=== PATIENT | male | born 1970 | race Caucasian/White ===

== ENCOUNTER 2019-12-21 09:44 | Emergency (ER) | payer OTHER, SELFPAY ==
[2019-12-21 10:20] VITALS: BP 117/78; PULSE 87; RESP 22; TEMP 37.1; O2SAT 98
--- NOTE | 2019-12-21 11:28 | ED.GENADULT ---
HPI - General Adult General Chief complaint: Nausea/Vomiting/Diarrhea Stated complaint: abd pain/nausea/diarrhea Time Seen by Provider: 12/21/19 11:28 Source: patient and RN notes reviewed Mode of arrival: ambulatory Limitations: no limitations History of Present Illness HPI narrative: 49-year-old male presents with complaints of body aches, diarrhea, decrease appetite, and nausea for 1 day. Nausea (spoil egg taste in mouth) and diarrhea without vomiting and/or abdominal pain. Zofran with relief. No abdominal pain or cramping. Exacerbating factors consist of eating and drinking. LBM this morning at 09:30, brown liquid stool without blood. Andreas says he has had 2 episodes since this morning. Denies fever or chills. Denies headache, dizziness, back pain, dysuria, and blood in stool. Tolerating po intake well, Andreas has a 32 ounce drink and tolerating it well. Some parts of this dictation were generated by voice recognition software and may contain typographical and/or grammatical inaccuracies. Related Data Allergies Allergy/AdvReac Type Severity Reaction Status Date / Time No Known Allergies Allergy Verified 12/21/19 11:29 Review of Systems Review of Systems: Narrative: CONSTITUTIONAL: Denies fever, chills, sweats. EYES: Denies visual changes, redness, discharge. ENT: Denies rhinorrhea, congestion, sore throat, otalgia. CARDIOVASCULAR: Denies chest pain, palpitations, edema. RESPIRATORY: Denies dyspnea, wheezing, cough. GASTROINTESTINAL: Denies abdominal pain, vomiting. Complains of diarrhea, nausea, and decrease appetite. GENITOURINARY: Denies dysuria, hematuria, abnormal discharge. SKIN: Denies rash or itching. MUSCULOSKELETAL: Denies acute back pain, joint pain, or myalgia. NEUROLOGIC: Denies numbness or focal weakness. PSYCHIATRIC: Denies anxiety or depression. [facility] Past Medical History Medical History Anxiety Social History Social History Smoking packs per day: 0.5 Smoking cigarettes per day: 10.0 Years smoked: 20 Smoking pack-years: 10.00 Smoking status: Current every day smoker Additional occupation/education comments: [employer] Gender identity (if verbalized by the patient): Male Comments At time of signature, I have reviewed and agree with nursing past medical, surgical, social, and family history. Please see nursing chart for further information. There is no relevant family history pertinent to the presenting complaint. Exam Narrative: Exam Narrative: GENERAL: This is a well-nourished, well-developed patient, in no apparent distress. Talks in full sentences without deficits and ambulates with steady gait without dyspnea. HEAD: normocephalic, atraumatic. EYES: PERRL. Sclera clear/white. Vision is grossly intact. THROAT: Mucous membranes moist, posterior pharynx clear. NECK: Neck supple, non-tender without lymphadenopathy, masses or thyromegaly. CARDIOVASCULAR: Regular rate and rhythm without murmurs, gallops, or rubs. RESPIRATORY: Clear to auscultation. Breath sounds equal bilaterally. No wheezes, rales, or rhonchi. GASTROINTESTINAL: Abdomen soft, no significant tenderness, nondistended. Bowel sounds are active. No hepato-splenomegaly, or palpable masses. No guarding. No palpable abdominal hernia. SKIN: warm, intact with no suspicious lesions or rash, good texture and turgor. NEURO: awake, alert, and oriented to person, place and time. There were no obvious focal neurologic abnormalities. EXTREMITIES: No clubbing, cyanosis, or edema. BACK: Nontender without deformity or crepitance. No flank tenderness with palpation. Tc Coma Scale Eye Opening: Spontaneous 4 [place] Coma Scale Motor: Obeys Commands 6 [place] Coma Scale Verbal: Oriented 5 Course Vital Signs Vital signs: Vital Signs Temperature 37.1 C 12/21/19 10:20 Pulse Rate 87 12/21/19 10:20 Re
== END 2019-12-21 11:40 | disposition home or self-care (01) ==
PROVIDERS: Emergency Provider Nurse Practitioner Family
DX: K52.9 Noninfective gastroenteritis and colitis, unspecified (principal); F17.200 Nicotine dependence, unspecified, uncomplicated
CPT/HCPCS: 99213; G0463

== ENCOUNTER 2021-12-25 10:38 | Emergency (ER) | payer OTHER, SELFPAY ==
--- NOTE | ~2021-12-25 | XR_ITS ---
EXAMINATION: [id number] DATE: 12/25/2021 11:23 INDICATION: Posterior neck pain. TECHNIQUE: 4 views of cervical spine were obtained. COMPARISON: None. FINDINGS: There is 9 degrees dextrocurvature of cervical spine. Vertebral body heights are normal. Th ere is mildly decreased disc height at C5-C6 and C6-C7. The facet joints are unremarkable. There is o ssification of the nuchal ligament at C6. No central canal stenosis or prevertebral soft tissue swell ing. IMPRESSION: 1. Mild cervical spondylosis. Reviewed, dictated and finalized at location A. [facility]
[2021-12-25 10:48] VITALS: BP 151/75; PULSE 90; RESP 16; TEMP 36.9; O2SAT 100
[2021-12-25 11:00] VITALS: BP 151/75; PULSE 90; RESP 16; TEMP 36.9; O2SAT 100
--- NOTE | 2021-12-25 11:00 | ED.NECK ---
HPI - Neck Pain/Injury General Chief Complaint: Neck Pain/Injury Stated Complaint: back of neck swelling and pain Time Seen by Provider: 12/25/21 11:00 Source: patient Mode of arrival: ambulatory Limitations: no limitations History of Present Illness HPI Narrative: 51-year-old male presented for complaint of mid posterior neck pain and swelling for about 1 week. He endorses flare ups at least once a month of the same symptoms. He states minimal activity can cause irritation to the site. He applies ice/heat and takes ibuprofen or Tylenol as needed. Today he endorses nausea and increased pressure to the site when he woke. He denies radiating pain to the arms, denies decreased range of motion to the neck. Hx nail gun injury to right side of neck 2018. Endorses having Covid on 12/07/2021 with a temperature of 105. He works at a [employer] and is a smoker. Related Data Home Medications Medication Instructions Recorded Confirmed citalopram 20 mg PO DAILY 12/25/21 12/25/21 Allergies Allergy/AdvReac Type Severity Reaction Status Date / Time No Known Allergies Allergy Verified 12/25/21 10:59 Review of Systems Review of Systems: CONSTITUTIONAL: Denies body aches, fever, chills, or sweats. EYES: Denies visual changes, redness, or discharge. ENT: Denies rhinorrhea, congestion, sore throat, or otalgia. CARDIOVASCULAR: Denies chest pain, palpitations, or edema. RESPIRATORY: Denies cough or dyspnea. GASTROINTESTINAL: Denies abdominal pain, nausea, vomiting, or diarrhea. GENITOURINARY: Denies dysuria or hematuria. SKIN: swelling and redness to posterior neck with pressure; No rash, itching, wounds. MUSCULOSKELETAL: Denies back pain, joint pain, or myalgia. NEUROLOGIC: Denies headache, numbness, tingling, or weakness. PSYCH: Denies depression or anxiety. [facility] Past Medical History Medical History (Updated 12/25/21 @ 11:45 by Daniela Gillette APRN) Anxiety Social History Social History Smoking packs per day: 0.5 Smoking cigarettes per day: 10.0 Years smoked: 20 Smoking pack-years: 10.00 Smoking status: Current every day smoker Additional occupation/education comments: [employer] Gender identity (if verbalized by the patient): Male Comments At time of signature, I have reviewed and agree with nursing past medical, surgical, social and family history unless otherwise noted. Please see nursing chart for further information. There is no relevant family history pertinent to the presenting complaint Exam Narrative: GENERAL: Well-appearing, well-nourished, and in no acute distress. HEAD: Normocephalic, atraumatic. EYES: PERRLA, conjunctivae clear, and EOMI. ENT: Mucous membranes moist. Oropharynx without edema, erythema or lesions. NECK: Supple. No lymphadenopathy CHEST: Clear to auscultation. No respiratory distress. HEART: Regular rate and rhythm. SKIN: Warm, dry. Patch of circular erythema and mild edema approx 4cmx5.5 cm diameter, nontender, no open area, no induration, no soft tissue nodule. NEURO: Alert and oriented x3. No weakness, loss of sensation, or decreased ROM, no VPT PSYCH: Normal mood and affect Course Course Emergency Course: Patient is aware of diagnosis, understands and agrees to treatment plan. Anticipatory guidance given. Patient agrees to follow-up as directed and is aware of reasons to seek care at the emergency department. Portions of this record may have been created with voice recognition software Level of Care: Express Care Visit Vital Signs Vital signs: Vital Signs Temperature 98.5 F 12/25/21 10:48 Pulse Rate 90 12/25/21 10:48 Respiratory Rate 16 12/25/21 10:48 Blood Pressure 151/75 H 12/25/21 10:48 Pulse Oximetry 100 12/25/21 10:48 Temperature 98.5 F 12/25/21 11:00 Pulse Rate 90 12/25/21 11:00 Respiratory Rate 16 12/25/21 11:00 Blood Pressure 151/75 H 12/25/21 11:00 Pulse O
== END 2021-12-25 11:53 | disposition home or self-care (01) ==
PROVIDERS: Emergency Provider Nurse Practitioner Family
DX: R22.1 Localized swelling, mass and lump, neck (principal); F41.9 Anxiety disorder, unspecified; Z86.16 Personal history of COVID-19; F17.210 Nicotine dependence, cigarettes, uncomplicated
CPT/HCPCS: 72040; 99213; G0463

== ENCOUNTER 2022-11-27 11:05 | Emergency (ER) | payer OTHER, SELFPAY ==
[2022-11-27 11:15] VITALS: BP 120/77; PULSE 87; RESP 16; TEMP 36.6; O2SAT 96
--- NOTE | 2022-11-27 11:30 | ED.NAVMDI ---
HPI - Nausea/Vomiting/Diarrhea General Chief complaint: Nausea/Vomiting/Diarrhea Stated complaint: flu symptoms Time Seen by Provider: 11/27/22 11:33 Source: patient and RN notes reviewed Mode of arrival: ambulatory Limitations: no limitations History of Present Illness HPI Narrative: 52 y/o male presented for c/o nausea this morning when he woke. States he feels better but was unable to go to work. Denies abdominal pain, vomiting, diarrhea, urinary complaints, fever or chills. . States he has had sinus congestion and drainage for about one week. Not taking anything for symptoms. Denies sick contacts. Related Data Home Medications Medication Instructions Recorded Confirmed citalopram 20 mg tablet 20 mg PO DAILY 12/25/21 11/27/22 Allergies Allergy/AdvReac Type Severity Reaction Status Date / Time No Known Allergies Allergy Verified 11/27/22 11:21 Review of Systems Review of Systems: per HPI All systems reviewed & are unremarkable except as noted in HPI and below PMFSH Past Medical History Medical History (Updated 11/27/22 @ 11:35 by Daniela Gillette APRN) Anxiety Social History Social History Smoking packs per day: 0.5 Smoking cigarettes per day: 10.0 Years smoked: 20 Smoking pack-years: 10.00 Smoking status: Current every day smoker Additional occupation/education comments: [employer] Gender identity (if verbalized by the patient): Male Comments At time of signature, I have reviewed and agree with nursing past medical, surgical, social and family history unless otherwise noted. Please see nursing chart for further information. There is no relevant family history pertinent to the presenting complaint Exam Narrative: GENERAL: Well-appearing EYES: EOMI. Conjunctivae normal. ENT: Mucous membranes pink and moist. CHEST: Clear to auscultation. HEART: Regular rate and rhythm. ABDOMEN: abd soft, nondistended, normal active bowel sounds. Nontender abdomen EXTREMITIES: Normal range of motion. No edema. SKIN: Warm, dry, no rash. Capillary refill normal. Normal skin turgor. NEURO: No focal deficits. Alert and oriented x3. PSYCH: Normal affect. Course Course Emergency Course: Patient is aware of diagnosis, understands and agrees to treatment plan. Anticipatory guidance given. Patient agrees to follow-up as directed and is aware of reasons to seek care at the emergency department. Portions of this record may have been created with voice recognition software Level of Care: Express Care Visit Vital Signs Vital signs: Vital Signs Temperature 97.8 F 11/27/22 11:15 Pulse Rate 87 11/27/22 11:15 Respiratory Rate 16 11/27/22 11:15 Blood Pressure 120/77 11/27/22 11:15 Pulse Oximetry 96 11/27/22 11:15 Oxygen Delivery Room Air 11/27/22 11:15 Temperature 97.8 F 11/27/22 11:15 Pulse Rate 87 11/27/22 11:15 Respiratory Rate 16 11/27/22 11:15 Blood Pressure 120/77 11/27/22 11:15 Pulse Oximetry 96 11/27/22 11:15 Oxygen Delivery Room Air 11/27/22 11:15 MDM - Nausea/Vomiting/Diarrhea MDM Narrative Medical decision making narrative: Advised supportive measures and signs/symptoms to go to the ER. Pt is appropriate for outpt treatment and f/u. Differential Diagnosis Differential diagnosis: Likely food poisoning, gastroenteritis and other Discharge Plan Discharge Clinical Impression: Nausea Patient Disposition: Home, Self-Care Condition: Stable Instructions: Acute Nausea and Vomiting (ED) Additional Instructions: Stay hydrated. Take small sips of fluid containing electrolytes frequently. Clear liquids (broth, jello, tea, sprite, pedialyte) [place] foods (bananas, rice, applesauce, toast, crackers) Avoid fatty, greasy, fried or spicy foods. You should go to the hospital if you experience persistent nausea and vomiting that does not resolve and does not allow you to t
== END 2022-11-27 11:38 | disposition home or self-care (01) ==
PROVIDERS: Emergency Provider Nurse Practitioner Family
DX: R11.0 Nausea (principal); F41.9 Anxiety disorder, unspecified; F17.210 Nicotine dependence, cigarettes, uncomplicated
CPT/HCPCS: 99213; G0463

== ENCOUNTER 2023-02-04 11:42 | Emergency (ER) | payer OTHER, SELFPAY ==
--- NOTE | 2023-02-04 11:46 | ED.NAVMDI ---
HPI - Nausea/Vomiting/Diarrhea General Chief complaint: Nausea/Vomiting/Diarrhea Stated complaint: abdo pain/nausea Time Seen by Provider: 02/04/23 12:01 Source: patient and RN notes reviewed Mode of arrival: ambulatory Limitations: no limitations History of Present Illness HPI Narrative: 52-year-old male presents concern for nausea stomach cramping that started this morning. He denies vomiting, diarrhea, abdominal pain, fever. He denies any upper respiratory symptoms. He denies known sick contacts. Reports he has been taking acid pills MD elicited complaint: nausea Related Data Home Medications Medication Instructions Recorded Confirmed citalopram 20 mg tablet 20 mg PO DAILY 12/25/21 11/27/22 Allergies Allergy/AdvReac Type Severity Reaction Status Date / Time No Known Allergies Allergy Verified 11/27/22 11:21 Review of Systems Review of Systems: CONSTITUTIONAL: Denies malaise, chills, sweats, or fever. ENT: Denies rhinorrhea, congestion, sinus pain, otalgia or sore throat. CARDIOVASCULAR: Denies chest pain, palpitations, or edema. RESPIRATORY: Denies cough or dyspnea. GASTROINTESTINAL: Denies abdominal pain, vomiting, diarrhea, bloody, or mucous stools. Reports nausea and stomach cramping GENITOURINARY: Denies dysuria or hematuria. MUSCULOSKELETAL: Denies myalgia. NEUROLOGIC: Denies headache. All systems reviewed & are unremarkable except as noted in HPI and below PMFSH Past Medical History Medical History (Updated 02/04/23 @ 12:06 by Cherri Weiss NP) Anxiety Social History Social History Smoking packs per day: 0.5 Smoking cigarettes per day: 10.0 Years smoked: 20 Smoking pack-years: 10.00 Smoking status: Current every day smoker Living arrangements: with family Occupation/Education: occupation Additional occupation/education comments: [employer] Gender identity (if verbalized by the patient): Male Comments At time of signature, agree with nursing past medical, surgical, social and family history. There is no relevant family history pertinent to the presenting complaint Exam Narrative: GENERAL: Well-appearing, well-nourished, and in no acute distress. HEAD: Normocephalic, atraumatic. EYES: PERRLA, conjunctivae clear, and EOMI. ENT: Nares clear, turbinates pink, no rhinorrhea or epistaxis. Mucous membranes moist. Oropharynx without edema, erythema, or lesions. Tonsils not enlarged and without exudate. NECK: Supple. No lymphadenopathy CHEST: Speaks in full sentences. No respiratory distress. HEART: Regular rate and rhythm. ABDOMEN: Soft, flat, nondistended, nontender. No guarding, rebound tenderness, or rigidity. No pulsatile masses. Bowel sounds present in all four quadrants. No organomegaly. Negative Post?s sign. No periumbilical tenderness. No Supra public tenderness or distension. Good femoral pulses bilaterally. No hernia noted. No scars or surface trauma. SKIN: Warm, dry, no rash. NEURO: Alert and oriented x3. PSYCH: Normal mood and affect Course Course Emergency Course: Patient is aware of diagnosis, understands and agrees to treatment plan. Anticipatory guidance given. Patient agrees to follow-up as directed and is aware of reasons to seek care at the emergency department. Portions of this record may have been created with voice recognition software Level of Care: Express Care Visit Vital Signs Vital signs: Reviewed. MDM - Nausea/Vomiting/Diarrhea MDM Narrative Medical decision making narrative: No evidence of pancreatitis, AAA, cholecystitis, choledocholithiasis, cholangitis, mesenteric ischemia, small bowel obstruction, diverticulitis, colitis, appendicitis, or pelvic etiology such as ovarian/testicular torsion, TOA, or ectopic . Patient has no history of peptic ulcer, H. pylori, chronic aspirin NSAID or corticosteroid use, chronic alcohol use, no history of inflammatory bowel disease, no
[2023-02-04 11:50] VITALS: BP 123/79; PULSE 78; RESP 16; TEMP 36.6; O2SAT 100
== END 2023-02-04 12:09 | disposition home or self-care (01) ==
PROVIDERS: Emergency Provider Nurse Practitioner
DX: R11.0 Nausea (principal); F17.210 Nicotine dependence, cigarettes, uncomplicated
CPT/HCPCS: 99211; G0463

== ENCOUNTER 2024-12-24 11:44 | Emergency (ER) | payer OTHER, SELFPAY ==
[2024-12-24 11:50] VITALS: BP 121/77; PULSE 95; RESP 20; TEMP 37.4; O2SAT 95
--- NOTE | 2024-12-24 12:01 | ED_ITS ---
HPI - URI/Sore Throat General Chief Complaint: Upper Respiratory Infection Stated Complaint: flu symptoms Source: patient and RN notes reviewed Mode of arrival: ambulatory Limitations: no limitations History of Present Illness HPI Narrative: 54-year-old male presented for complaint of headache, body aches, sinus pressure/congestion, cough, fever/chills. onset yesterday. Denies sob, wheezing, n/v/d. Took Tylenol and NyQuil this morning for temp 103. MD elicited complaint: cough Related Data Home Medications ?Medication ?Instructions ?Recorded ?Confirmed ?Last Taken ?Type No Home Medications 12/24/24 12/24/24 Unknown History Allergies Allergy/AdvReac Type Severity Reaction Status Date / Time No Known Allergies Allergy Verified 12/24/24 12:01 Review of Systems Review of Systems: CONSTITUTIONAL: Endorses malaise, chills, sweats, fever EYES: Denies visual changes, redness, or discharge ENT: Reports rhinorrhea, congestion CARDIOVASCULAR: Denies chest pain, palpitations, edema RESPIRATORY: Reports cough, post nasal drainage. Denies dyspnea GASTROINTESTINAL: Denies abdominal pain, nausea, vomiting, diarrhea SKIN: Denies rash MUSCULOSKELETAL: Endorses myalgia NEUROLOGIC: endorses headache PMFSH Past Medical History Medical History (Updated 12/24/24 @ 12:03 by Daniela Antonio APRN) Anxiety Social History Social History Smoking packs per day: 0.5 Smoking cigarettes per day: 10.0 Years smoked: 20 Smoking pack-years: 10.00 Smoking status: Current every day smoker Living arrangements: with family Occupation/Education: occupation Additional occupation/education comments: [employer] Gender identity (if verbalized by the patient): Male Exam Narrative: GENERAL: mildly Ill-appearing, nontoxic no acute distress. EYES: PERRLA, conjunctivae clear ENT: Mucous membranes moist. TM pearly mcdaniel with dull light reflex bilaterally; no tragal tenderness. NECK: Supple. No lymphadenopathy CHEST: Clear to auscultation, breath sounds equal. No wheezing, rhonchi, rales, or stridor. No respiratory distress, speaks in full sentences. HEART: Regular rate and rhythm. No murmur heard. SKIN: Warm, dry, no rash. NEURO: Alert and oriented x3. PSYCH: Normal mood and affect Course Course Emergency Course: Patient is aware of diagnosis, understands and agrees to treatment plan. Anticipatory guidance given. Patient agrees to follow-up as directed and is aware of reasons to seek care at the emergency department. Portions of this record may have been created with voice recognition software Level of Care: Express Care Visit Vital Signs Vital signs: Vital Signs Temperature 99.3 F 12/24/24 11:50 Pulse Rate 95 12/24/24 11:50 Respiratory Rate 20 12/24/24 11:50 Blood Pressure 121/77 12/24/24 11:50 Pulse Oximetry 95 12/24/24 11:50 Oxygen Delivery Room Air 12/24/24 11:50 Temperature 99.3 F 12/24/24 11:50 Pulse Rate 95 12/24/24 11:50 Respiratory Rate 20 12/24/24 11:50 Blood Pressure 121/77 12/24/24 11:50 Pulse Oximetry 95 12/24/24 11:50 Oxygen Delivery Room Air 12/24/24 11:50 reviewed MDM - URI/Sore Throat MDM Narrative Medical decision making narrative: POS flu. Discussed physical exam findings. Advised supportive measures and si gns/symptoms to go to the ER. Pt is appropriate for outpt treatment and f/u. Differential Diagnosis Differential diagnosis: Likely upper respiratory infection, sinusitis, viral infection, bronchitis, influenza and pharyngitis Discharge Plan Discharge Clinical Impression: Influenza Patient Disposition: Home, Self-Care Condition: Stable Instructions: Antibiotic Form, Influenza (ED) Additional Instructions: Influenza positive You should avoid crowds until you are fever free for 24 hours without the use of fever reducing medications, or the symptoms are improved Rest. Drink plenty of fluids. Tylenol 1000mg every 8 hours as needed for pain/fever Recommend Flonase spray and Zyrtec (or Claritin/Faith) for sinus pressure/congestion over the counter Cough syrup may cause drowsiness; avoid driving or take it at night time. Follow up with your primary care provider as needed Go to the ER for worsening symptoms or concerns Patient Language: Estonian Prescriptions: No Action No Home Medications Follow-up/Referrals: PHYSICIAN,FREIGHT ADJUSTER [Primary Care Provider] - Stand Alone Forms: Work/School Release IP Time of Disposition: 12:06
[2024-12-24 12:12] LABS: EDCOVIDSCREEN Negative (Negative); EDINFLUASCREEN Positive (Negative); EDINFLUBSCREEN Negative (Negative)
--- OUTSIDE RECORDS SUMMARY | 2024-12-24 12:38 | XMS_ITS | Clinical Summary ---
Author Organization [facility] Address [address] [place] [address] Phone Care Team Providers Care Mold Maker Name Role Phone Mary Kate Munoz PAC Unavailable [phone] Damien Lance APRN, CARE TEAM ASSISTANT Primary Care Pr ovider Allergies No known active allergies Medications ibuprofen (MOTRIN) 800 MG TabletIndication s:Chronic pain disorder Take 1 Tablet by mouth every 8 hours. 60 Tablet 1 04/18/2022 Active escitalopram (LEXAPRO) 10 MG TabletIndication s:Panic disorder Take 1 Tablet by mouth daily. 90 Tablet 3 05/17/2023 Active Active Problems Problem Noted Date Diagnosed Date HLD (hyperlipidemia) 12/26/2020 Impaired fasting glucose 01/05/2020 Panic disorder 01/01/2020 Tobacco abuse 01/01/2020 Resolved Problems Problem Noted Date Diagnosed Date Resolved Date Hyperglycemia 12/23/2020 12/23/2020 Anxiety 01/01/2020 01/01/2020 Immunizations Immunization Administration Dates Next Due Influenza Vaccine, Quadrivalent, PF 10/20/2021,1 ,12/04/2019 TDAP Vaccine 12/14/2023 Td (Adult) 09/08/2019 Family History Medical History Relation Name Comments No Known Problems Father No Known Problems Maternal Grandfather No Known Problems Maternal Grandmother Lupus Mother Rheumatoid Arthritis Mother No Known Problems Paternal Grandfather No Known Problems Paternal Grandmother No Known Problems Sister Relation Name Status Comments Father Alive Maternal Grandfather Maternal Grandmother Mother Alive Paternal Grandfather Paternal Grandmother Sister Social History Tobacco Use Types Packs/Day Years Used Date Smoking Tobacco: Some Days Cigarettes Smokeless Tobacco: Never Tobacco Cessation:Ready to Q uit: No; Counseling Given: Yes Alcohol Use Standard Drinks/Week Comments Not Currently 0 (1 standard drink = 0.6 oz pur e alcohol) PHQ-2 Answer Date Recorded Total Score - Questions 1-9 0 04/26 Education Answer Date Recorded What is the highest level of school you have completed or the highest degree you have received? 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 Not on file Not on file Last Filed Vital Signs Vital Sign Reading Time Taken Comments Blood Pressure 116/76 12/14/2023 4:36 PM RN ENT Pulse 78 12/14/2023 4:36 PM RN ENT Temperature 36.2 ??C (97.2 ??F) 12/14/2023 2:52 PM CS T Respiratory Rate 18 12/14/2023 4:36 PM RN ENT Oxygen Saturation 99% 12/14/2023 4:36 PM RN ENT Inhaled Oxygen Concentration - - Weight 77.6 kg (171 lb 1.2 oz) 12/14/2023 2:52 P M RN ENT Height 182.9 cm (6') 12/14/2023 2:52 PM RN ENT Body Mass Index 23.2 12/14/2023 2:52 PM RN ENT Plan of Treatment Health Maintenance Due Date Last Done Comments Hepatitis C Virus (HCV) Screening 1971 Hepatitis B Immunization (1 of 3 - 19+ 3-dose series) 1990 Pneumococcal Immunization (5 0+ years) (1 of 2 - PCV) 1990 Colonoscopy 2016 Colorectal Cancer Screening 2016 Cologuard 2021 Immunochemical Fecal Occult Blood 2021 Zoster Immunization (1 of 2) 2021 Influenza Immunization (#1) 2024 11/2 04/2021, 09/08/2020, 12/04/2019 SARS-COV-2 Immunization ( season) 2024 01/30/2021, 01/07/2021 Td Immunization Every 10 Yea rs (Adults With 1 Tdap) 12/14/2033 12/14/2023, 09/08/2019 Respiratory Syncytial Virus (RSV) Immunization (Adult) (1 - 1-dose 75+ series) 2046 Pneumococcal Immunization Combined Discontinued 08/25/2019 DTaP/Tdap/Td Immunization Discontinued 2023, 09/08/2019 Meningococcal Immunization (ACWY) Aged Out No longer eligible based on patient's age to complete this topic Rotavirus Immunization Aged Out No lo nger eligible based on patient's age to complete this topic Insurance [facility] Care Teams Mold Maker Relationship Specialty Start Date End Date Damine Lance, PASTEURISER OPERATOR, CARE TEAM ASSISTANT [address] [address] PCP - General Advanced Practice Nurse 12/14/23 Mary Kate Munoz, CHADD [address] [place] [address] Physician Ranch Hand Livestock Physician Ranch Hand Livestock 04/18/22
--- OUTSIDE RECORDS SUMMARY | 2024-12-24 12:38 | XMS_ITS | Encounter Summary ---
Author Organization [facility] Address [address] [place] [address] Phone Care Team Providers Care Grain Oilseed Or Pasture Farm Worker Name Role Phone Damien Lance APRN, SCOTT Primary Care Pr ovider Mary Kate Munoz PAC Unavailable [phone] Damien Lance APRN, SCOTT Primary Care Pr ovider Reason for Visit * Reason Comments Medication Refill Encounter Details Date Type Department Care Team (Late st Contact Info) Description 02/18/2021 Refill [facility] [address] [place] [address] Khushi Newell APRN, SHOE LINING FITTER [address] [place] [address] Medication Refill Social History Tobacco Use Types Packs/Day Years Used Date Smoking Tobacco: Some Days Cigarettes Smokeless Tobacco: Never Alcohol Use Standard Drinks/Week Comments Not Currently 0 (1 standard drink = 0.6 oz pur e alcohol) PHQ-2 Answer Date Recorded Total Score - Questions 1-9 0 02/2020 Sexually Active Control Partners Comments Yes Female Sex and Gender Information Value Date Recorded Sex Assigned at Not on file Legal Sex Male 11:15 PM CDT Gender Identity Not on file Sexual Orientation Not on file 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 Requested Prescriptions Pending Prescriptions Disp Refills escitalopram (LEXAPRO) 10 MG Tablet [Pharmacy Med Name: ESCITALOPRAM 10MG TABLETS] 90 Tablet 1 Sig: TAKE 1 TABLET BY MOUTH DAILY Not Delegated - Psychiatry: Antidepressants Failed - 02/18/2021 1:16 PM Failed - This refill cannot be delegated Passed - Valid encounter within last 12 months Past Office Visits Recent Outpatient Visits 2 months ago Chest pressure [facility] - Damien Schmidt APN, CNP 7 months ago Strain of neck muscle, initial encounter [facility] - Kandy Zuniga APN, CNP 1 year ago Panic disorder [facility] - Damien Schmidt APN, CNP Upcoming Appointments SMOCKING MACHINE OPERATOR - Recent and Past Visits Recent Visits Date Type Provider Dept 12/23/20 Telemedicine Damien Lance APN, CNP [facility] 06/28/20 Office Visit Kandy Oliveira APN, CNP [facility] 01/01/20 Office Visit Damien Lance APN, CNP [facility] Showing recent visits within past 460 days with a meds authorizing provider and meeting all other requirements Future Appointments No visits were found meeting these conditions. Showing future appointments within next 90 days with a meds authorizing provider and meeting all other requirements documented in this encounter Plan of Treatment Not on file documented as of this encounter Visit Diagnoses Diagnosis Panic disorder Panic disorder without agoraphobia documented in this encounter Additional Health Concerns Assessment Noted Time PHQ-9 Depression Total Score: 0 06/28/20 20 12:45 PM CDT documented as of this encounter Care Teams Grain Oilseed Or Pasture Farm Worker Relationship Specialty Start Date End Date Damien Lance APRN, CNP [address] [address] PCP - General Certified Nurse Practitioner 01/05/20 12/13/23 Damien Lance APRN, SHOE LINING FITTER [address] [address] PCP - General Advanced Practice Nurse 12/14/23 Mary Kate Munoz, CHADD [address] [place] [address] Physician Stained Glass Artist Physician Stained Glass Artist 04/18/22 documented as of this encounter
--- OUTSIDE RECORDS SUMMARY | 2024-12-24 12:38 | XMS_ITS | Encounter Summary ---
Author Organization [facility] Address [address] [place] [address] Phone Care Team Providers Care Manager Staffing Name Role Phone Damien Lance APRN, SCOTT Primary Care Pr ovider Mary Kate Munoz PAC Unavailable [phone] Damien Lance APRN, CNP Primary Care Pr ovider Reason for Visit * Reason Comments Medication Refill Encounter Details Date Type Department Care Team (Late st Contact Info) Description 05/16/2023 Refill [facility] [address] [place] [address] Damien Lance APRN, SCOTT [address] [address] Medication Refill Social History Tobacco Use Types Packs/Day Years Used Date Smoking Tobacco: Some Days Cigarettes Smokeless Tobacco: Never Alcohol Use Standard Drinks/Week Comments Not Currently 0 (1 standard drink = 0.6 oz pur e alcohol) PHQ-2 Answer Date Recorded Total Score - Questions 1-9 0 04/26 Sexually Active Control Partners Comments Yes Female Sex and Gender Information Value Date Recorded Sex Assigned at Not on file Legal Sex Male 11:15 PM CDT Gender Identity Not on file Sexual Orientation Not on file 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 Unable to assess 05/17/2023 10:26 AM CDT documented as of this encounter Functional Status * Question Answer Date of Assessment Author Little interest or pleasure in doing things Not at all 05/17/2023 10:00 AM SONJAT Dorothy Boo CMA Feeling down, depressed, or hopeless Not at all 05/17/2023 10:00 AM CDT Dorothy Boo CMA * Over the past 2 weeks, how often have you been bothered by any of the following problems? Question Answer Date of Assessment Author Patient Health Questionnaire -2 Score 0 05/17/2023 10:00 AM CDT Dorothy Boo CMA documented as of this encounter Miscellaneous Notes * Telephone Encounter - Deirdre Garrido RN - 05/16/2023 1:55 PM CDT Appt scheduled with Mary Kate 05/17/23 * Telephone Encounter - Damien Lance APRN, CNP - 05/16/2023 1:32 PM CDT Needs appointment * Telephone Encounter - Deirdre Garrido RN - 05/16/2023 1:29 PM CDT Needs OV with PCP * Telephone Encounter - Deirdre Garrido RN - 05/16/2023 1:29 PM CDT Medication failed the protocol, provider to review and approve the medication order if appropriate. Requested Prescriptions Pending Prescriptions Disp Refills escitalopram (LEXAPRO) 10 MG Tablet [Pharmacy Med Name: ESCITALOPRAM 10MG TABLETS] 30 Tablet 0 Sig: TAKE 1 TABLET BY MOUTH DAILY SSRI (6 Month Refill Only) Protocol Failed - 05/16/2023 3:54 AM Failed - Visit with relevant provider in past 6 months or upcoming 90 days Recent Visits No visits were found meeting these conditions. Showing recent visits within past 182 days and meeting all other requirements Future Appointments No visits were found meeting these conditions. Showing future appointments within next 90 days and meeting all other requirements Failed - Has an encounter in the past 6 months with a depression, anxiety, adjustment disorder, OCD, or PTSD visit diagnosis Passed - Patient has established therapy with SSRI for at least 6 months documented in this encounter Plan of Treatment Not on file documented as of this encounter Visit Diagnoses Diagnosis Panic disorder Panic disorder without agoraphobia documented in this encounter Additional Health Concerns Assessment Noted Time PHQ-9 Depression Total Score: 0 04/18/20 4:00 PM CDT documented as of this encounter Care Teams Manager Staffing Relationship Specialty Start Date End Date Damien Lance APRN, SCOTT [address] [address] PCP - General Certified Nurse Practitioner 01/05/20 12/13/23 Damien Lance APRN, SCOTT [address] [address] PCP - General Advanced Practice Nurse 12/14/23 Mary Kate Munoz PAC [address] [place] [address] Physician Sybase Developer Physician Sybase Developer 04/18/22 documented as of this encounter
--- OUTSIDE RECORDS SUMMARY | 2024-12-24 12:38 | XMS_ITS | Encounter Summary ---
Author Organization [facility] Address [address] 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 Requested Prescriptions Pending Prescriptions Disp Refills escitalopram (LEXAPRO) 10 MG Tablet [Pharmacy Med Name: ESCITALOPRAM 10MG TABLETS] 90 Tablet 1 Sig: TAKE 1 TABLET BY MOUTH DAILY SSRI (6 Month Refill Only) Protocol Failed - 09/06/2021 5:07 PM Failed - Visit with relevant provider in [...] documented as of this encounter Care Teams Packing Machine Feeder Relationship Specialty Start Date End Date Damien Lance APRN, SCOTT [address] [address] PCP - General Certified Nurse Practitioner 01/05/20 12/13/23 Damien Lance APRN, SCOTT [address] [address] PCP - General Advanced Practice Nurse 12/14/23 Mary Kate Munoz PAC [address] [place] [address] Physician Light Cleaner Physician Light Cleaner 04/18/22 documented as of this encounter
== END 2024-12-24 12:10 | disposition home or self-care (01) ==
PROVIDERS: Emergency Provider Nurse Practitioner Family
DX: J11.1 Influenza due to unidentified influenza virus with other respiratory manifestations (principal); F41.9 Anxiety disorder, unspecified; Z20.822 Contact with and (suspected) exposure to COVID-19
CPT/HCPCS: 87426; 87804; 99212; G0463

== ENCOUNTER 2025-06-02 13:32 | Emergency (ER) | payer OTHER, SELFPAY ==
[2025-06-02 13:38] VITALS: BP 127/98; PULSE 117; RESP 20; TEMP 36.9; O2SAT 99
--- OUTSIDE RECORDS SUMMARY | 2025-06-02 13:47 | XMS_ITS | Encounter Summary ---
Author Organization [facility] Address [address] 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 [...] Outpatient Visits 2 months ago Chest pressure [facility] - Damien Schmidt APN, CNP 7 months ago Strain of neck muscle, initial encounter [facility] - Kandy Zuniga APN, CNP 1 year ago Panic disorder [facility] - Damien Schmidt APN, CNP Upcoming Appointments CAN VACUUM TESTER - Recent and Past Visits Recent Visits Date Type Provider Dept 12/23/20 Telemedicine Damien Lance APN, CNP [facility] 06/28/20 Office Visit Kandy Oliveira APN, CNP [facility] 01/01/20 Office Visit Damien Lance APN, CNP [facility] Showing recent visits within past 460 days [...] documented as of this encounter Care Teams Face Burler Relationship Specialty Start Date End Date Damien Lance APRN, CNP [address] [address] PCP - General Certified Nurse Practitioner 01/05/20 12/13/23 Damien Lance APRN, CATEGORY MANAGER #[address] [address] PCP - General Advanced Practice Nurse 12/14/23 Mary Kate Munoz, CHADD [address] [place] [address] Physician Supervisor Sewing Room Physician Supervisor Sewing Room 04/18/22 documented as of this encounter
--- OUTSIDE RECORDS SUMMARY | 2025-06-02 13:47 | XMS_ITS | Encounter Summary ---
Author Organization [facility] Address [address] 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
--- OUTSIDE RECORDS SUMMARY | 2025-06-02 13:47 | XMS_ITS | Encounter Summary ---
Author Organization [facility] Address [address] 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
--- OUTSIDE RECORDS SUMMARY | 2025-06-02 13:47 | XMS_ITS | Clinical Summary ---
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 on file Last Filed Vital Signs Vital Sign Reading Time Taken Comments Blood Pressure 116/76 12/14/2023 4:36 PM WIND UP OPERATOR Pulse 78 12/14/2023 4:36 PM WIND UP OPERATOR Temperature 36.2 C (97.2 F) 12/14/2023 2:52 PM WIND UP OPERATOR Respiratory Rate 18 12/14/2023 4:36 PM WIND UP OPERATOR Oxygen Saturation 99% 12/14/2023 4:36 PM WIND UP OPERATOR Inhaled Oxygen Concentration - - Weight 77.6 kg (171 lb 1.2 oz) 12/14/2023 2:52 P M WIND UP OPERATOR Height 182.9 cm (6') 12/14/2023 2:52 PM WIND UP OPERATOR Body Mass Index 23.2 12/14/2023 2:52 PM WIND UP OPERATOR Plan of Treatment Health Maintenance Due Date Last Done Comments Hepatitis C Virus (HCV) Screening 1971 Hepatitis B Immunization (1 of 3 - 19+ 3-dose series) 1990 Pneumococcal Immunization (5 0+ years) (1 of 2 - PCV) 1990 Cologuard 2016 Colonoscopy 2016 Colorectal Cancer Screening 2016 Immunochemical Fecal Occult Blood 2016 Zoster Immunization (1 of 2) 2021 SARS-COV-2 Immunization ( season) 2024 01/30/2021, 01/07/2021 Influenza Immunization (#1) 07/26/202509/26, 09/08/2020, 12/04/2019 Td Immunization Every 10 Yea rs (Adults With 1 Tdap) 12/14/2033 12/14/2023, 09/08/2019 Respiratory Syncytial Virus (RSV) Immunization (Adult) (1 - 1-dose 75+ series) 2046 Pneumococcal Immunization Combined Discontinued 08/25/2019 DTaP/Tdap/Td Immunization Discontinued 2023, 09/08/2019 Human Papillomavirus (HPV) Immunization Aged Out No longer eligible based on patient's age to complete this topic Meningococcal Immunization (ACWY) Aged Out No longer eligible based on patient's age to complete this topic Rotavirus Immunization Aged Out No lo nger eligible based on patient's age to complete this topic Insurance [facility] Care Teams Lead Etl Developer Relationship Specialty Start Date End Date Damien Lance APRN, MONUMENT ERECTOR [address] [place] [address] PCP - General Advanced Practice Nurse 12/14/23
--- NOTE | 2025-06-02 14:06 | ED_ITS ---
HPI - Nausea/Vomiting/Diarrhea General Chief complaint: Nausea/Vomiting/Diarrhea Stated complaint: Vomiting, Dizziness, Work Note Time Seen by Provider: 06/02/25 14:06 Source: patient and RN notes reviewed Mode of arrival: ambulatory Limitations: no limitations History of Present Illness HPI Narrative: 54-year-old male presents with concern for returning back to work after having nausea and vomiting yesterday. Reports several episodes of vomiting yesterday, chills, sweats. He reports he has not had any nausea, vomiting, diarrhea today. He denies fever, aches, chills, sweats today. Reports his last normal bowel movement was 3 hours ago. He has not tried to eat much at today MD elicited complaint: nausea and vomiting Related Data Home Medications ?Medication ?Instructions ?Recorded ?Confirmed ?Last Taken ?Type No Home Medications 06/02/25 06/02/25 Unknown History Allergies Allergy/AdvReac Type Severity Reaction Status Date / Time No Known Allergies Allergy Verified 06/02/25 13:53 Review of Systems Review of Systems: CONSTITUTIONAL: Denies malaise, chills, sweats, or fever. ENT: Denies rhinorrhea, congestion, sinus pain, otalgia or sore throat. CARDIOVASCULAR: Denies chest pain, palpitations, or edema. RESPIRATORY: Denies cough or dyspnea. GASTROINTESTINAL: Denies abdominal pain, nausea, vomiting, diarrhea, bloody, or mucous stools. GENITOURINARY: Denies dysuria or hematuria. MUSCULOSKELETAL: Denies myalgia. NEUROLOGIC: Denies headache. All systems reviewed & are unremarkable except as noted in HPI and below PMFSH Past Medical History Medical History (Updated 06/02/25 @ 14:11 by Cherri Weiss NP) Anxiety Social History Social History Smoking packs per day: 0.5 Smoking cigarettes per day: 10.0 Years smoked: 20 Smoking pack-years: 10.00 Smoking status: Current every day smoker Living arrangements: with family Occupation/Education: occupation Additional occupation/education comments: [employer] Gender identity (if verbalized by the patient): Male Comments At time of signature, agree with nursing past medical, surgical, social and family history. There is no relevant family history pertinent to the presenting complaint Exam Narrative: GENERAL: Well-appearing, well-nourished, and in no acute distress. HEAD: Normocephalic, atraumatic. EYES: PERRLA, conjunctivae clear, and EOMI. ENT: Nares clear, turbinates pink, no rhinorrhea or epistaxis. Mucous membranes moist. Oropharynx without edema, erythema, or lesions. Tonsils not enlarged and without exudate. NECK: Supple. No lymphadenopathy CHEST: Speaks in full sentences. No respiratory distress. HEART: Regular rate and rhythm. ABDOMEN: Soft, flat, nondistended, nontender. No guarding, rebound tenderness, or rigidity. No pulsatile masses. Bowel sounds present in all four quadrants. SKIN: Warm, dry, no rash. NEURO: Alert and oriented x3. PSYCH: Normal mood and affect Course Course Emergency Course: Patient is aware of diagnosis, understands and agrees to treatment plan. Anticipatory guidance given. Patient agrees to follow-up as directed and is aware of reasons to seek care at the emergency department. Portions of this record may have been created with voice recognition software Level of Care: Express Care Visit Vital Signs Vital signs: Vital Signs Temperature 98.5 F 06/02/25 13:38 Pulse Rate 117 H 06/02/25 13:38 Respiratory Rate 20 06/02/25 13:38 Blood Pressure 127/98 H 06/02/25 13:38 Pulse Oximetry 99 06/02/25 13:38 Oxygen Delivery Room Air 06/02/25 13:38 Temperature 98.5 F 06/02/25 13:38 Pulse Rate 117 H 06/02/25 13:38 Respiratory Rate 20 06/02/25 13:38 Blood Pressure 127/98 H 06/02/25 13:38 Pulse Oximetry 99 06/02/25 13:38 Oxygen Delivery Room Air 06/02/25 13:38 Reviewed. MDM - Nausea/Vomiting/Diarrhea MDM Narrative Medical decision making narrative: No evidence of pancreatitis, AAA, cholecystitis, choledocholithiasis, cholangitis, mesenteric ischemia, small bowel obstruction, diverticulitis, colitis, appendicitis, or pelvic etiology such as testicular torsion, TOA, or ectopic . Patient has no history of peptic ulcer, H. pylori, chronic aspirin NSAID or corticosteroid use, chronic alcohol use, no history of inflammatory bowel disease, no history of active abdominal infection or malignancy. Patient has no history of hernia or intra-abdominal surgeries, p atient denies absence of flatus, constipation, melena, hematemesis. Patient denies post-prandial pain. No pain-out of proportion. Exam findings show no acute concerns or changes; patient is non-toxic appearing and is in no distress. Patient is appropriate for outpatient treatment and follow-up. Critical Care Time Critical Care Time Critical Care Time: No Discharge Plan Discharge Clinical Impression: Nausea and vomiting Patient Disposition: Home Condition: Stable Instructions: Acute Nausea and Vomiting (ED) Additional Instructions: Stay hydrated. Take small sips of fluid containing electrolytes frequently. You should go to the hospital if you experience return of persistent nausea and vomiting that does not resolve and does not allow you to tolerate any food or fluids, persistent fevers for greater than 2-3 more days, increasing abdominal pain that persists despite medications, persistent diarrhea, dizziness, syncope (fainting), or for any other concerns. Patient Language: [place]i Prescriptions: No Action No Home Medications Follow-up/Referrals: PHYSICIAN,[facility] [Primary Care Provider] - Stand Alone Forms: Work/School Release IP Time of Disposition: 14:10
== END 2025-06-02 14:12 | disposition home or self-care (01) ==
PROVIDERS: Emergency Provider Nurse Practitioner
DX: R11.2 Nausea with vomiting, unspecified (principal); F17.210 Nicotine dependence, cigarettes, uncomplicated
CPT/HCPCS: 99211; G0463